=== PATIENT | female | born 1975 | race Asian ===

== ENCOUNTER 2017-01-18 15:42 | Emergency (ER) | payer BC ==
[~2017-01-18] VITALS: Ht 165.1 cm; Wt 90.7 kg
[2017-01-18] MEDS ORDERED: KETOROLAC TROMETHAMINE 60 MG/2 ML VIAL IM ONE (16:00)
[2017-01-18] MEDS ORDERED: DEXAMETHASONE SOD PHOSPHATE 10 MG/ML VIAL IM ONE (16:00)
--- NOTE | 2017-01-18 16:00 | NUR ---
Patient to ER [address] to [facility] for evaluation. Side rails up. Report given to AIMEE.
--- NOTE | 2017-01-18 16:02 | NUR ---
Dr. Carpio at bedside for evaluation
--- NOTE | 2017-01-18 16:26 | NUR ---
C/O right side [place] pain x2 weeks worse today. States that she sits for hours at works and cannot sit without severe pain. Denies new injury
--- NOTE | 2017-01-18 16:34 | NUR ---
Medicated for pain per MD orders. Tolerated well. Will continue to monitor.
[2017-01-18 16:47] LABS: BILIRUBIN,URINE NEGATIVE (NEGATIVE); BLOOD, URINE NEGATIVE (NEGATIVE); CLARITY/URINE CLEAR (CLEAR); COLOR,URINE YELLOW (YELLOW); GLUCOSE,URINE NEGATIVE (NEGATIVE); KETONES,URINE TRACE (NEGATIVE); LEUKOCYTE ESTERASE ,URINE NEGATIVE (NEGATIVE); NITRITE, URINE NEGATIVE (NEGATIVE); PROTEIN URINE NEGATIVE (NEGATIVE); UROBILINOGEN,URINE 0.2 (0.2-1.0)
[2017-01-18 17:26] VITALS: BP_SYST 133
--- NOTE | 2017-01-18 17:26 | NUR ---
Patient given written and verbal discharge instructions and verbalizes understanding. ER MD discussed with patient the results and treatment provided. Patient in stable condition. ID arm band removed. Rx of flexeril, motrin, medrol dosepak, tramadol given. Patient educated on pain management and to follow up with PMD. Pain Scale 3/10. Opportunity for questions provided and answered.
== END 2017-01-18 17:26 | disposition home or self-care (01) ==
LOC: SED 15:42
DX: M54.30 Sciatica, unspecified side (principal); M06.9 Rheumatoid arthritis, unspecified
CPT/HCPCS: 81003; 81025; 96372; 99284; J1100; J1885